=== PATIENT | female | born 1975 | race Caucasian/White ===

== ENCOUNTER 2021-02-17 08:29 | Day surgery (SDC) | payer MEDICAID, SELFPAY ==
[~2021-02-17] VITALS: Ht 162.6 cm; Wt 86.2 kg
[2021-02-17 09:15] LABS: HCG,QUAL RESULT NEGATIVE (NEGATIVE)
[2021-02-17] MEDS ORDERED: MIDAZOLAM HCL 5 MG/5 ML VIAL ONE (09:44)
[2021-02-17] MEDS ORDERED: DIPHENHYDRAMINE INJ 50 MG/ML VIAL ONE (09:45)
[2021-02-17 15:17] VITALS: BP_SYST 128
== END 2021-02-17 12:15 | disposition home or self-care (01) ==
LOC: SDS 08:29 → SMU 08:30 → SDS 12:15
PROVIDERS: ATTEND Internal Medicine
DX: M51.16 Intervertebral disc disorders with radiculopathy, lumbar region (principal); M50.90 Cervical disc disorder, unspecified, unspecified cervical region; Z79.899 Other long term (current) drug therapy
CPT/HCPCS: 36415; 62323; 84703; 87426; J1200; J2250; 76000